=== PATIENT | female | born 1990 | race Two or more races ===

== ENCOUNTER → 2019-12-27 | Outpatient (CLI) | payer OTHER | END | disposition home or self-care (01) | LOC: PRENATAL 09:50 | DX: O35.3XX0 Maternal care for (suspected) damage to fetus from viral disease in mother, not applicable or unspecified (principal); O26.842 Uterine size-date discrepancy, second trimester; Z36.89 Encounter for other specified antenatal screening ==

== ENCOUNTER 2020-04-28 14:15 | Inpatient (IN) | payer OTHER ==
[~2020-04-28] VITALS: Ht 167.6 cm; Wt 73.0 kg
[2020-05-08] MEDS ORDERED: PRENATAL CAPLE1 EAC1 PO (08:06)
== END 2020-05-10 16:31 | disposition home or self-care (01) | DRG 807 ==
LOC: LDR 05-08 06:31 → SURG-SUITE 05-08 17:46 → LDR 05-15 14:15
PROVIDERS: ADMIT Obstetrics & Gynecology; ATTEND Obstetrics & Gynecology
PROC: 10D07Z8 Extraction of Products of Conception, Other, Via Natural or Artificial Opening (ICD-10-PCS; principal; 2020-05-08)
PROC: 0W8NXZZ Division of Female Perineum, External Approach (ICD-10-PCS; 2020-05-08)
PROC: 3E033VJ Introduction of Other Hormone into Peripheral Vein, Percutaneous Approach (ICD-10-PCS; 2020-05-08)
PROC: 4A1HXFZ Monitoring of Products of Conception, Cardiac Rhythm, External Approach (ICD-10-PCS; 2020-05-08)
DX: O80 Encounter for full-term uncomplicated delivery (principal); Z37.0 Single live birth; Z3A.39 39 weeks gestation of pregnancy